=== PATIENT | male | born 1955 | race Caucasian/White ===

== ENCOUNTER 2021-03-15 12:33 | Outpatient (CLI) | payer OTHER, SELFPAY ==
--- NOTE | 2021-03-15 12:43 | ECHO_ITS ---
Patient Info Name: Nick Craven Age: 65 years : 1955 Gender: Male Ht: 68 in Wt: 225 lbs BSA: 2.25 m2 HR: 65 bpm BP: 170 / 99 mmHg Technical Quality: Fair Exam Date: 03/15/2021 12:49 PM Exam Location: [facility] Patient Status: Outpatient Admit Date: 03/15/2021 Staff Ordering Physician: Cristian Ziegler MD Crematory Attendant: Bambi Tsang RDCS Attending Provider: Cristian Ziegler MD Referring Physician: Karlie CHAVIRA; Exam Type: CA echo doppler color flow Study Info Indications R01.1 - Cardiac murmur, unspecified Complete two-dimensional, color flow and Doppler transthoracic echocardiogram is performed. Summary 1. Complete two-dimensional, color flow and Doppler transthoracic echocardiogram is performed. 2. Left ventricular chamber dimension is normal. 3. Left ventricular systolic function is normal, estimated at 60-65%. 4. The left ventricular diastolic function is grade I diastolic dysfunction. 5. E/e' 8 is minimally elevated. 6. Global longitudinal strain is abnormal at -16.0%. 7. No pulmonary hypertension, estimated pulmonary arterial systolic pressure is 15 mmHg. Left Ventricle E/e' 8 is minimally elevated. Global longitudinal strain is abnormal at -16.0%. Left ventricular chamber dimension is normal. Left ventricular systolic function is normal, estimated at 60-65%. The left ventricular diastolic function is grade I diastolic dysfunction. Right Ventricle Right ventricular chamber dimension is normal. Right ventricular systolic function is normal. Left Atria Left atrial chamber dimension is normal. Right Atria Right atrial chamber dimension is normal. Aortic Valve The aortic valve is trileaflet. There is no aortic valve stenosis. There is no aortic valve regurgitation. Pulmonic Valve There is no pulmonic regurgitation. Mitral Valve There is no mitral valve stenosis. There is no mitral valve regurgitation. Tricuspid Valve There is no tricuspid valve regurgitation. No pulmonary hypertension, estimated pulmonary arterial systolic pressure is 15 mmHg. Pericardium/Pleural There is no pericardial effusion. Inferior Vena Cava Normal inferior vena cava with >50% collapse upon inspiration consistent with normal right atrial pressure, 5 mmHg. Aorta The aortic root size at the sinus of Valsalva is normal. Left Ventricular Outflow Tract Name Value Normal LVOT 2D LVOT Diameter 2.0 cm LVOT Doppler LVOT Peak Gradient 4 mmHg LVOT Mean Gradient 2 mmHg LVOT VTI 19 cm LVOT VTI/AV VTI Ratio 0.9 LVOT Stroke Volume 58 ml LVOT CO 3.8 l/min LVOT CI 1.7 l/min/m2 Pulmonic Valve Name Value Normal RVOT Doppler
== END 2021-03-15 12:34 | disposition home or self-care (01) ==
LOC: ANHCARD 12:35
PROVIDERS: PCP Family Medicine; Visit Provider Family Medicine
DX: R01.1 Cardiac murmur, unspecified (principal)
CPT/HCPCS: 93306

== ENCOUNTER 2025-01-19 01:35 | Day surgery (SDC) | payer OTHER, SELFPAY ==
[2025-01-10 08:31] VITALS: BMI 31.8
--- OUTSIDE RECORDS SUMMARY | 2025-01-19 01:38 | XMS_ITS ---
Author Organization Unknown ENCOUNTERS Encounter Performer Location Date Diagnosis Diagnosis Status Outpatient [facility] [address] [place] [address] [id number] Outpatient Cristian [facility] [address] [place] [address] [id number] HANNA *Note: Encounters from your own facility or health system may be excluded. Allergies, Adverse Reactions, Alerts Allergen Type Severity Identification Date Medications Name Date Quantity Days Supplied GPI Number
[2025-01-19 07:41] VITALS: BP 166/89; PULSE 70; RESP 18; TEMP 36.8; O2SAT 94; BMI 33.2
--- NOTE | 2025-01-19 07:51 | WPDANESEPPF ---
Anes - Initial Pre Proc Eval Procedure: Operation Date: 01/19/25 09:00 Proposed Procedures p Screening Colonoscopy - Jah Chen MD Date/Time: 01/19/25 07:51 Surgeon: Jah Chen MD Pre Op Diagnosis: Screening Patient Data Age: 69 Gender: M Height: 1.73 m Weight: 99.1 kg Last Vital Signs Temp 36.8 C 01/19/25 07:41 Pulse 70 01/19/25 07:41 Resp 18 01/19/25 07:41 BP 166/89 H 01/19/25 07:41 Pulse Ox 94 01/19/25 07:41 O2 Del Method Room Air 01/19/25 07:41 Allergies Allergy/AdvReac Type Severity Reaction Status Date / Time No Known Allergies Allergy Verified 01/19/25 07:40 Home Medications ?Medication ?Instructions ?Recorded ?Confirmed ?Type sodium sul 1.479 gram-potas ch See Rx Instructions PO PER PKG DIR 08/03/24 01/10/25 Rx 0.188 gram-magnes sul 0.225 gram #24 tabs tablet (Sutab) simvastatin 20 mg tablet See Rx Instructions .Route 09/20/24 01/10/25 Rx .COMPLEX #90 tabs doxazosin 4 mg tablet 4 mg PO DAILY #90 tabs 09/22/24 01/10/25 Rx Patient hx anesthesia problems: none Family hx anesthesia problems: none Results Review: All pre-operative results and documents have been reviewed as part of the pre-operative evaluation. [facility] Past Medical History Medical History (Updated 01/19/25 @ 07:51 by Erick Rojas MD) Mixed hyperlipidemia Obesity Hyperglycemia GARDENIA (obstructive sleep apnea) Heart murmur 1-22 normal echo must be conditioned heart Family History Family History Father Family history of Parkinson's disease Social History Social History Smoking status: Never smoker Alcohol intake: never Living arrangements: with family Spiritual care concerns: No Anes - Eval Final PreProcedure Day of Procedure 01/19/25 07:51 Patient weight: obese Heart: regular rate and rhythm Lungs: clear to auscultation Airway: Mallampati scale class II Neurological: alert and oriented Last oral intake: >/= 8 hours ASA classification: III Emergent: no Anesthetic plan: proceed Anesthesia type and monitoring: general GIVS and standard monitoring Results Review: All pre-operative results and documents have been reviewed as part of the pre-operative evaluation. Informed Consent: The patient's anesthetic plan and its attendant risks and benefits were discussed with the patient/family/POA. Questions were solicited and answers provided to the satisfaction of the patient/family/POA.
[2025-01-19] MEDS: LACTATED RINGERS 1,000 ML 150 ML IV CONT (07:52)
--- NOTE | 2025-01-19 09:01 | PM.IMHP ---
H&P: HPI History of Present Illness Date/Time: 01/19/25 09:01 Chief Complaint: Screening colonoscopy Narrative: This is the patient's 2nd screening colonoscopy. There are no GI symptoms and there is no family history of colorectal cancer. Review of Systems Review of Systems: All systems reviewed & are unremarkable except as noted in HPI and below [facility] Past Medical History Medical History (Updated 01/19/25 @ 09:01 by Jah Chen MD) Mixed hyperlipidemia Obesity Hyperglycemia GARDENIA (obstructive sleep apnea) Heart murmur 1-22 normal echo must be conditioned heart Family History Family History Father Family history of Parkinson's disease Social History Social History Smoking status: Never smoker Alcohol intake: never Living arrangements: with family Spiritual care concerns: No Meds Home Medications and Allergies Home Medications ?Medication ?Instructions ?Recorded ?Confirmed ?Type sodium sul 1.479 gram-potas ch See Rx Instructions PO PER PKG DIR 08/03/24 01/10/25 Rx 0.188 gram-magnes sul 0.225 gram #24 tabs tablet (Sutab) simvastatin 20 mg tablet See Rx Instructions .Route 09/20/24 01/10/25 Rx .COMPLEX #90 tabs doxazosin 4 mg tablet 4 mg PO DAILY #90 tabs 09/22/24 01/10/25 Rx Allergies Allergy/AdvReac Type Severity Reaction Status Date / Time No Known Allergies Allergy Verified 01/19/25 07:40 Vital Signs Vital Signs - 24 hr 01/19/25 07:41 Temperature 98.3 F Pulse Rate 70 Respiratory Rate 18 Blood Pressure 166/89 H Pulse Oximetry 94 Oxygen Delivery Room Air Exam Const: General: cooperative and healthy appearing Resp: Effort & Inspection: normal respiratory effort and able to speak in complete sentences Auscultation: clear to auscultation bilaterally Cardio: Rate: regular rate Rhythm: regular rhythm GI: Inspection: normal to inspection GI Palp: No No hepatosplenomegaly present Auscultation: normal bowel sounds Rectal Exam: deferred Skin: General skin exam: normal color Psych: Appearance: grossly normal Mental Status: mental status grossly normal Assessment and Plan Assessment and plan (1) Encounter for screening colonoscopy: Code(s): Z12.11 - Encounter for screening for malignant neoplasm of colon Status: Acute Assessment and Plan: The patient is deemed a good candidate for the procedure. Consent signed. Will proceed.
--- NOTE | 2025-01-19 09:22 | SUR.OPER ---
Only one of two ascending colon polyps retrieved. Dr. Chen is aware. No new orders.
--- NOTE | 2025-01-19 09:28 | S_PTH ---
PATIENT: Nick Craven LOC: [facility] U#:[id number] AGE/SX: 69/M ROOM: RE01/19/[address]: Jah Chen MD : 1955 BED: DIS: 01/19/2025 SPEC #: [id number] RECD: 01/19/25 10:55 STATUS: TAI REQ #: [id number] WALTER: 01/19/25 09:[address]: Jah Chen DEPT: [facility] Surgical RECD BY: Sandy Maravilla ENTERED: 01/19/25 10:56 SP TYPE: Surgical OTHR DR: Jan Levin MD Tissues: A - Colon Polypectomy B - Colon Polypectomy Procedures: Hematoxylin and Eosin Stain Gross and Microscopic Level 4
[2025-01-19 09:30] VITALS: BP 114/75; PULSE 58; RESP 21; O2SAT 95
[2025-01-19 09:40] VITALS: BP 122/76; PULSE 61; RESP 15; O2SAT 95
[2025-01-19 09:50] VITALS: BP 142/80; PULSE 58; RESP 22; O2SAT 96
== END 2025-01-19 10:02 | disposition home or self-care (01) ==
PROVIDERS: PCP Family Medicine; Referring Provider Family Medicine; Visit Provider Internal Medicine Gastroenterology
PROC: 0DJD8ZZ Inspection of Lower Intestinal Tract, Via Natural or Artificial Opening Endoscopic (ICD-10-PCS; CPT 45378; principal; 2025-01-19 09:00)
DX: Z12.11 Encounter for screening for malignant neoplasm of colon (principal); D12.2 Benign neoplasm of ascending colon; D12.3 Benign neoplasm of transverse colon; K57.30 Diverticulosis of large intestine without perforation or abscess without bleeding; E66.9 Obesity, unspecified; Z68.33 Body mass index [BMI] 33.0-33.9, adult
CPT/HCPCS: 45385; 88305; J2003; J2704; J7120